=== PATIENT | male | born 1970 ===

== ENCOUNTER 2020-10-15 11:57 | Observation (INO) ==
[2020-10-15] MEDS ORDERED: Morphine 4 MG/ML VIAL (1 ml) IV ONE (14:56)
[2020-10-15] MEDS ORDERED: NS 0.9% 1000 ml BAG 1,000 ML IV ONE (14:56)
[2020-10-15 16:01] LABS: ABS Basophils 0.1 10^3/ul (0-0.2); ABS Eosinophils 0.1 10^3/ul (0-0.6); ABS Lymphocytes 2.7 10^3/ul (1.0-4.8); ABS Monocytes 0.7 10^3/ul (0-0.8); ABS Neutrophils 7.9 10^3/ul (1.5-7.7); Eosinophil % 1.3 %; Hematocrit 40 % (42-52); Hemoglobin 13.6 g/dL (14.0-18.0); Lymphocyte % 23.6 %; Mean Corpuscular HGB Conc 34 g/dL (31-36); Mean Corpuscular Hemoglobin 32 pg (27-31); Mean Corpuscular Volume 93 fL (80-94); Mean Platelet Volume 7.4 fL (7.4-10.4); Platelet Count 341 10^3/uL (150-450); Red Blood Count 4.33 10^6 /uL (4.18-5.48); Red Cell Distribution Width 16 % (10-15); White Blood Count 11.5 10^3/uL (3.5-10.8)
[2020-10-15 16:17] LABS: INR 1.14 (0.82-1.09)
[2020-10-15 16:42] LABS: Albumin 3.8 g/dL (3.2-5.2); C Reactive Protein 108.07 mg/L (<8.01); Potassium 3.4 mmol/L (3.5-5.0); Total Bilirubin 0.5 mg/dL (0.2-1.0); Total Protein 7.8 g/dL (6.4-8.9)
[2020-10-15] MEDS ORDERED: Iodixanol (CONTRAST) 320 MG/ML 100 ML SDV IV ONE (17:53)
[2020-10-15 18:20] LABS: EGFR African American 129.4 (>60); EGFR Non-African American 106.9 (>60)
[2020-10-15] MEDS ORDERED: Piperacillin/Tazobac ADVAN 3.375 GM in NS 0.9% 100 ml BAG 100 ML IV ONE (19:01)
[2020-10-15] MEDS ORDERED: Vancomycin 1,500 MG in NS 0.9% 250 ml 250 ML IVPB ONE (19:01)
[2020-10-15] MEDS ORDERED: Piperacillin/Tazobac 3.375 GM BAG ONE (19:36)
[2020-10-15] MEDS ORDERED: fentaNYL 100 mcg/2 ml 50 MCG/ML VIAL IV SLOW PU ONE (20:02)
[2020-10-15] MEDS ORDERED: Lactated Ringers 1000 ml BAG 1,000 ML IV ONE (20:31)
[2020-10-15] MEDS ORDERED: Acyclovir IV 500 MG/10 ML 100 ML VIAL (500 MG) IVPB SCH (23:45)
[2020-10-16] MEDS ORDERED: Senna TAB 8.6 mg TAB PO PRN (00:31)
[2020-10-16] MEDS ORDERED: Vancomycin per Pharmacy 1 EA NOTE FOLLOW UP SCH (01:00)
[2020-10-16] MEDS: HYDROcodone/ACETAMIN 5/325 mg TAB PO PRN ×3 (01:16→22:17)
[2020-10-16] MEDS: Morphine 2 MG/ML SYRINGE IV PRN ×3 (02:41→19:53)
[2020-10-16] MEDS: Acyclovir IV 620 MG in NS 0.9% 100 ml BAG 100 ML IVPB SCH ×3 (02:52→21:12)
[2020-10-16] MEDS: cefTRIAXone 1 gm/50 mL NS BAG 1 GM/50 ML BAG IVPB SCH (04:16)
[2020-10-16] MEDS ORDERED: Vancomycin 1,250 MG in NS 0.9% 250 ml 250 ML IVPB SCH (09:00)
[2020-10-16] MEDS ORDERED: Clindamycin 600 MG/D5W BAG 600 MG/50 ML BAG IV SCH (16:00)
[2020-10-16 18:26] LABS: Hepatitis B Surface Ab Immune (Immune)
[2020-10-16 18:27] LABS: Hepatitis C Antibody Negative (Negative)
[2020-10-16] MEDS: Clindamycin 600 MG/D5W BAG 600 MG/50 ML BAG IV SCH (19:47)
[2020-10-16] MEDS ORDERED: Senna TAB 8.6 mg TAB PO SCH (23:00)
[2020-10-17] MEDS: Morphine 2 MG/ML SYRINGE IV PRN (01:46)
[2020-10-17] MEDS: Clindamycin 600 MG/D5W BAG 600 MG/50 ML BAG IV SCH ×2 (01:46→09:01)
[2020-10-17 02:58] LABS: Calcium 8.8 mg/dL (8.6-10.3); EGFR African American 125.6 (>60); EGFR Non-African American 103.8 (>60); Potassium 3.6 mmol/L (3.5-5.0)
[2020-10-17] MEDS: HYDROcodone/ACETAMIN 5/325 mg TAB PO PRN ×2 (04:20→12:27)
[2020-10-17] MEDS ORDERED: Morphine 2 MG/ML SYRINGE IV ONE (04:52)
[2020-10-17] MEDS: cefTRIAXone 1 gm/50 mL NS BAG 1 GM/50 ML BAG IVPB SCH (05:01)
[2020-10-17 05:51] LABS: ABS Basophils 0.1 10^3/ul (0-0.2); ABS Eosinophils 0.3 10^3/ul (0-0.6); ABS Lymphocytes 3.3 10^3/ul (1.0-4.8); ABS Monocytes 0.6 10^3/ul (0-0.8); ABS Neutrophils 6.5 10^3/ul (1.5-7.7); Eosinophil % 3.2 %; Hematocrit 39 % (42-52); Hemoglobin 13.4 g/dL (14.0-18.0); Lymphocyte % 30.2 %; Mean Corpuscular HGB Conc 34 g/dL (31-36); Mean Corpuscular Hemoglobin 32 pg (27-31); Mean Corpuscular Volume 94 fL (80-94); Mean Platelet Volume 7.2 fL (7.4-10.4); Platelet Count 405 10^3/uL (150-450); Red Blood Count 4.18 10^6 /uL (4.18-5.48); Red Cell Distribution Width 16 % (10-15); White Blood Count 10.8 10^3/uL (3.5-10.8)
[2020-10-17] MEDS: Acyclovir IV 620 MG in NS 0.9% 100 ml BAG 100 ML IVPB SCH (06:03)
[2020-10-17 08:16] LABS: EGFR African American 133.4 (>60); EGFR Non-African American 110.2 (>60)
[2020-10-17] MEDS ORDERED: Vancomycin Trough Check NOTE FOLLOW UP ONE (08:30)
[2020-10-17] MEDS ORDERED: Magnesium Hydroxide LIQ 30 ML UDC PO SCH (09:00)
[2020-10-17] MEDS ORDERED: Benzocaine/Menthol LOZ PO PRN (10:44)
[2020-10-17 16:19] VITALS: BP 144/93
[2020-10-18 15:54] LABS: Mumps IgM Antibody Index 0.27 (0.00-0.79); Mumps Virus IgG Antibody Positive; Mumps Virus IgM Antibody Negative (Negative)
== END 2020-10-17 17:20 | disposition home or self-care (01) ==
LOC: ED 11:57 → MEDTELE 11:57
PROVIDERS: ADMIT Pediatrics; ATTEND Internal Medicine